=== PATIENT | male | born 1970 | race Caucasian/White ===

== ENCOUNTER 2025-01-29 13:29 | Outpatient (CLI) | payer BC, SELFPAY ==
--- NOTE | ~2025-01-29 | MR_ITS ---
MRI of the cervical spine Clinical History: Post procedural state Technique: Axial T2-weighted and gradient images, and sagittal T1-weighted, T2-weighted, and STIR jeffry ges were acquired. Following intravenous administration of 20 cc MultiHance gadolinium, T1-weighted f at-sat imaging was performed in the axial and sagittal planes. Findings: There is anterior fusion from C5 to C7. There is mild reversal normal cervical lordosis. No fracture or subluxation seen. No suspicious bone marrow signal abnormality seen. At C2-C3, there is minimal disc osteophyte complex. No spinal canal stenosis, cord compression, or ne ural foraminal narrowing. At C3-C4, there is mild disc osteophyte complex. There is mild canal stenosis without luz cord comp ression. There is bilateral neural foraminal narrowing, right worse than left. At C4-C5, there is disc osteophyte complex with mild to moderate canal stenosis. There is mild flatte sobia the ventral cord. There is right neural foraminal narrowing. Left neural foramen preserved. At C5-C6, there is mild central disc protrusion. There is mild canal stenosis and probable mild meryl ening the ventral cord. Neural foramina are preserved. At C6-C7, there is no disc bulge or herniation. No spinal canal stenosis or cord compression. There i s bilateral neural foraminal narrowing, right worse than left. No abnormal signal seen in the spinal cord. Paravertebral soft tissues are unremarkable. No abnormal postcontrast enhancement identified. Impression: Moderate degenerative spondylosis overall, as detailed above, probably worst at C4-C5 and C5-C6. Anterior fusion from C5 to C7. Reviewed, dictated and finalized at [facility]. Impression: Moderate degenerative spondylosis overall, as detailed above, probably worst at C4-C5 and C5-C6. Anterior fusion from C5 to C7.
== END 2025-01-29 13:30 | disposition home or self-care (01) ==
LOC: MICIMG 13:30
PROVIDERS: PCP Nurse Practitioner Family; Visit Provider Nurse Practitioner Family
DX: M47.812 Spondylosis without myelopathy or radiculopathy, cervical region (principal); M25.511 Pain in right shoulder; Z98.1 Arthrodesis status
CPT/HCPCS: 72156; A9577